=== PATIENT | male | born 1955 | race Caucasian/White ===

== ENCOUNTER 2017-05-13 08:41 | Day surgery (SDC) | payer BC ==
[2017-05-12 16:32] VITALS: BMI 28.2
[2017-05-13] MEDS ORDERED: CEFAZOLIN/Water 2 GM/20 ML SYRINGE ONE (09:46)
[2017-05-13 09:57] LABS: #Eosinphils 0.2 thou/uL (0.0-0.7); #Lymphocytes 1.6 thou/uL (1.20-3.40); #Monocytes 0.5 thou/uL (0.11-0.59); #Neutrophils 2.9 thou/uL (1.40-6.50); %Basophils 0.7 % (0.0-1.0); %Eosinophils 4.6 % (0.0-10.0); %Lymphocytes 30.9 % (21.0-51.0); %Neutrophils 54.8 % (42.0-75.0); Hemoglobin 15.6 g/dL (14.0-18.0); Mean Corpuscular HGB CONC 34.3 g/dL (32.0-36.0); Mean Corpuscular Hemoglobin 32.3 pg (27.0-31.0); Mean Corpuscular Volume 94.2 fl (80.0-94.0); Mean Platelet Volume 6.6 fL (7.4-10.4); Platelet Count 179 thou/uL (130-400); RBC Distribution Width 12.2 % (11.5-14.5); Red Blood Cell (RBC) Count 4.83 mill/uL (4.70-6.10); White Blood Cell (WBC) Count 5.3 thou/uL (4.8-10.8)
[2017-05-13] MEDS ORDERED: Diprivan 20 ML ONE (09:59)
[2017-05-13 10:30] LABS: Anion Gap 10 mmol/L (10-20); BUN (Urea Nitrogen) 21 mg/dL (8.4-25.7); Calc. Creatinine Clearance 83 mL/min (70-130); Calcium 9.9 mg/dL (7.8-10.44); Carbon Dioxide 27 mmol/L (23-31); Chloride 105 mmol/L (98-107); Estimated GFR-MDRD 56; Glucose 107 mg/dL (80-115); Sodium 138 mmol/L (136-145)
[2017-05-13] MEDS ORDERED: Fentanyl 100 MCG/2 ML VIAL ONE (10:39)
--- NOTE | 2017-05-13 13:32 | OP ---
DATE OF PROCEDURE: 05/13/2017 PREOPERATIVE DIAGNOSIS: Right knee medial and lateral meniscus tears. POSTOPERATIVE DIAGNOSES: 1. Right knee medial and lateral meniscus tears. 2. Significant gouty crystal deposition in the meniscal tissues as well as some areas of the cartilage. The patient also had some grade II and III changes on the lateral femoral condyle. PROCEDURE: 1. Right knee arthroscopy with partial medial and lateral menisectomies DISPOSITION: He did go to recovery room in stable condition. ANESTHESIA: He had general anesthetic. He also had local knee block. INDICATIONS: Mr. Raymond comes in complaining of chronic right knee pain that has been going on for about a year and a half. He came in with an MRI and at this time wanted to have surgery since nonoperative measures have failed. DESCRIPTION OF PROCEDURE: After all appropriate consent forms were explained and signed, Mr. Raymond was taken back to the operating room and at this time was given general anesthetic. Once anesthesia was appropriate, the tourniquet was placed on the right thigh and the right leg was then prepped and draped in the standard surgical fashion. The leg was prepped and draped in the standard surgical fashion. The limb was then exsanguinated and tourniquet was taken up to 300 mmHg. An inferolateral portal was established and the scope was placed into the knee joint. Needle localization technique was then used to make a medial working portal. Diagnostic arthroscopy commenced in the notch. ACL and PCL probed and found to be intact. There was a tear of the anterior horn medial meniscus which was torn and sucked into the shaver device. The medial femoral condyle did have some gouty crystals deposits, but overall no significant loss of cartilage. There was a large degenerative tear of the medial meniscus and most of the meniscal tissue that had been torn had gathered underneath the meniscus into the tibial recess. Multiple times the probe had to be used to remove the tissue out of the recess and biter and shaver were then used to remove this tissue. Again, the majority of this tissue was all crystallized and almost like gouty tophus. Once this had been removed to a stable base, we turned our attention to the lateral compartment. The root and posterior horn lateral meniscus had a tear which again had gouty crystal deposits and this was debrided with the shaver and biter back to a stable base. Remaining lateral compartment overall was in good condition except for an area greater than 1 cm in diameter which had grade 2 and 3 chondromalacia. There was no unstable chondral flaps and nothing needed treatment. The gutters were swept through and other than large gouty deposits, no other abnormality was noted. Patellofemoral joint showed more of the same with a large central lesion on the trochlea and the patella had a little bit of fraying. There were some other gouty deposits in the suprapatellar pouch, which were removed with the shaver and at this time, we went through the knee one more time thoroughly irrigating and removing any last deposits as possible and then removed the scope , drained the knee, and closed the portals with simple nylon stitch. A bulky sterile dressing was applied and the tourniquet was let down. Toes pinked up nicely. The patient was awakened and taken to recovery in stable condition. All counts were correct at the end of the case and he received preoperative IV antibiotics. ESTUARDO
[2017-05-13] MEDS ORDERED: Bupivacaine HCl 0.5%/Epinephrine 1:200,000/PF 30 ml Vial ONE (14:40)
[2017-05-13] MEDS ORDERED: Lidocaine 2% w/Epinephrine 1:200K 20 ML VIAL ONE (14:40)
[2017-05-13] MEDS ORDERED: Propofol 200 MG/20 ML VIAL ONE (14:53)
[2017-05-13] MEDS ORDERED: Glycopyrrolate 0.2 MG/ML 5 ML SYRINGE ONE (14:53)
[2017-05-13] MEDS ORDERED: Ketorolac Tromethamine 30 MG/ML VIAL ONE (14:53)
[2017-05-13] MEDS ORDERED: Lidocaine 1% PF 5 ML VIAL ONE (14:53)
[2017-05-13] MEDS ORDERED: Ondansetron HCl/PF 4 MG/2 ML Vial ONE (14:53)
== END 2017-05-13 15:15 | disposition home or self-care (01) ==
LOC: SDC 08:41
PROVIDERS: ATTEND Orthopaedic Surgery
PROC: 0SBC4ZZ Excision of Right Knee Joint, Percutaneous Endoscopic Approach (ICD-10-PCS; principal; 2017-05-13)
DX: S83.281A Other tear of lateral meniscus, current injury, right knee, initial encounter (principal); S83.241A Other tear of medial meniscus, current injury, right knee, initial encounter; M10.9 Gout, unspecified; Z86.19 Personal history of other infectious and parasitic diseases; Z98.890 Other specified postprocedural states
CPT/HCPCS: 80048; 85025; 93005; 93010; G8978-GP-CL; G8979-GP-CL; G8980-GP-CL; J0670; J1885; J2001; J2405; J2704; J3010